=== PATIENT | female | born 1995 | race Hispanic/Latino ===

== ENCOUNTER → 2022-12-14 | Outpatient (CLI) | payer MEDICAID | END | disposition home or self-care (01) | LOC: RAH 11:32 | PROVIDERS: ATTEND Obstetrics & Gynecology | DX: N63.31 Unspecified lump in axillary tail of the right breast (principal) | CPT/HCPCS: 76882 ==

== ENCOUNTER 2023-04-30 19:23 | Emergency (ER) | payer MEDICAID, OTHER ==
[~2023-04-30] VITALS: Ht 165.1 cm; Wt 141.5 kg
[2023-04-30 19:55] VITALS: BP 160/68; PULSE 89; RESP 16; O2SAT 98
[2023-04-30] MEDS ORDERED: SILVER NITRATE APPLICATOR 1 SWAB TP SCH (20:00)
[2023-04-30] MEDS ORDERED: LIDOCAINE HCL 1% 20 ML VIAL INJ SCH (20:00)
[2023-04-30] MEDS ORDERED: KETOROLAC 30MG VIAL (30MG/ML) IM ONE (20:00)
[2023-04-30] MEDS ORDERED: KETOROLAC 60 MG VIAL (30MG/ML) IM ONE (20:01)
[2023-04-30] MEDS ORDERED: CEPH500B PO (20:47)
== END 2023-04-30 20:53 | disposition home or self-care (01) ==
LOC: EDH 19:23
DX: L60.0 Ingrowing nail (principal)
CPT/HCPCS: 99284; 11730; J1885